=== PATIENT | male | born 1970 | race Caucasian/White ===

== ENCOUNTER 2017-12-03 08:54 | Emergency (ER) | payer BC ==
[~2017-12-03] VITALS: Ht 180.3 cm; Wt 122.4 kg
[~2017-12-03 08:54] MED LIST: NOHOMEMEDS
[2017-12-03 09:59] LABS: HEMOGLOBIN 14.8 G/DL (12.5-16.6); MCH 29.6 PG (29.0-34.0); MCHC 34.4 G/DL (30.0-36.0); PLATELET COUNT 297 K/uL (156-360); RBC DIS.WIDTH-CV 12.9 % (11.8-14.6); RBC DIS.WIDTH-SD 40.3 % (39-53); WHITE BLOOD COUNT 6.8 K/uL (4.1-10.2)
[2017-12-03 10:10] LABS: ALBUMIN 4.2 g/dL (3.2-4.8); CHLORIDE 108 mEq/L (99-109); SODIUM 141 mEq/L (136-147)
[2017-12-03 10:12] LABS: GLUCOSE 124 mg/dL (70-99)
[2017-12-03 10:13] LABS: TOTAL PROTEIN 7.1 g/dL (6.4-8.3)
[2017-12-03 10:14] LABS: TOTAL BILIRUBIN 0.4 mg/dL (0.0-1.0)
[2017-12-03 10:16] LABS: ALKALINE PHOSPHATASE 68 IU/L (3-129); CREATININE 1.2 mg/dL (0.6-1.3); GFR ESTIMATE (CALCULATED) > 59 mL/min/ (58.99-99999)
[2017-12-03 10:17] LABS: UREA NITROGEN (BUN) 16 mg/dL (9-23)
[2017-12-03 10:18] LABS: AST (GOT) 21 IU/L (2-34)
[2017-12-03 10:19] LABS: ALT (GPT) 18 IU/L (3-49)
[2017-12-03 10:24] LABS: APPEARANCE SL.HAZY ((CLEAR)); BILIRUBIN NEGATIVE; BLOOD MODERATE; COLOR YELLOW ((YELLOW)); GLUCOSE (STRIP) NEGATIVE; KETONES NEGATIVE; LEUKOCYTES NEGATIVE; NITRITE NEGATIVE; PROTEIN (STRIP) NEGATIVE; SPECIFIC GRAVITY 1.029 (1.000-1.030); UROBILINOGEN 0.2 MG/DL (0.2-1.0)
[2017-12-03] MEDS ORDERED: TORADOL10 MG PO (10:25)
[2017-12-03] MEDS ORDERED: ZOFRAN ODT4 MG PO (10:25)
[2017-12-03] MEDS ORDERED: PERCOCET 5/31 TABLET PO (10:25)
[2017-12-03] MEDS ORDERED: FLOMAX0.4 MG PO (10:25)
[2017-12-03 10:38] LABS: BACTERIA NONE SEEN /HPF; CALCIUM OXALATE CRYSTALS 3+ /HPF; EPITHELIAL CELLS RARE /HPF; MUCUS TRACE /LPF; RED BLOOD CELLS TNTC /HPF (0-5)
[2017-12-03 11:26] VITALS: BP 143/96
== END 2017-12-03 11:20 | disposition home or self-care (01) ==
LOC: EME 08:54
PROVIDERS: Nurse Practitioner Family
DX: N13.2 Hydronephrosis with renal and ureteral calculous obstruction (principal); Z87.442 Personal history of urinary calculi; Z87.891 Personal history of nicotine dependence
CPT/HCPCS: 74176; 80053; 81003; 85027; 99281; 99284; J1885; J2405; J3010; J7030